=== PATIENT | female | born 1970 | race Asian ===

== ENCOUNTER → 2017-06-25 | Outpatient (CLI) | payer OTHER | END | disposition home or self-care (01) | LOC: KCIC MRI 13:45 | DX: S43.432A Superior glenoid labrum lesion of left shoulder, initial encounter (principal); M19.012 Primary osteoarthritis, left shoulder; X58.XXXA Exposure to other specified factors, initial encounter; Y93.89 Activity, other specified; Y92.89 Other specified places as the place of occurrence of the external cause; Y99.8 Other external cause status | CPT/HCPCS: 73221 ==

== ENCOUNTER → 2020-05-19 | Outpatient (CLI) | payer OTHER ==
[2020-04-25 14:53] VITALS: BP 103/70
[~2020-05-19] MED LIST: 0.9 % SODIUM CHLORIDE 10 ML DISP.SYRIN. ID ONE; CEFD300C PO; CONTRAST GIVEN. MC PRN; DEXA4TAB PO; FAMO-63 PO; GADOTERATE 5 MMOL/10ML VIAL. INT ART ONE; IOHEXOL 300 MG/ML 50 ML VIAL. INT ART ONE; LIDOCAINE 1% Multi-Dose 20 ML VIAL. ID ONE
--- NOTE | 2020-05-19 16:04 | KCIC ---
EXAM: Fluoroscopically guided left glenohumeral joint injection for MRI arthrogram INDICATION: Superior glenoid labral lesion, osteoarthritis, adhesive capsulitis COMPARISON: Left shoulder radiograph 07/01/2018 TECHNIQUE/FINDINGS: The purpose of the procedure and risks including infection, bleeding, contrast reaction, and pain wer e discussed with the patient. Informed consent was obtained. A timeout was performed. After obtaining consent, the patient was placed supine on the fluoroscopy table with the shoulder ext ernally rotated. The skin overlying the left glenohumeral joint was marked, sterilized and draped. Superficial and deep soft tissues were anesthetized with 1% lidocaine. Utilizing fluoroscopic C-Vibes ce, a 22-gauge 1.5 inch needle was advanced into the joint. Intraarticular position was confirmed wit h injection of a small amount of iodinated contrast. Subsequently, 13 mL of a solution containing th e following items was instilled into the joint: 10 mL of 1% lidocaine, 5 mL of sterile saline, 5 mL of non-ionic iodinated contrast, and 0.1 mL of gadolinium. At the end of the procedure, the needle was removed. The overlying skin was cleansed and covered wit h a bandaid. The patient tolerated the procedure well and was free of immediate complications. The p atient was transferred for the MR portion of the exam in stable condition. Total fluoroscopic time: 27 seconds. IMPRESSION: Technically successful left glenohumeral joint injection for the purposes of MR arthrogr am. Electronically signed by: Luisa Shaver MD (05/19/2020 4:02 PM) [id number]
--- NOTE | 2020-05-21 15:11 | KCIC ---
EXAM: MRI LEFT SHOULDER WITHCONTRAST INDICATION: Superior glenoid labral lesion. Chronic pain for 3 years COMPARISON: Left shoulder radiograph 07/01/2018 and MRI left shoulder 06/25/2017 TECHNIQUE: Multiplanar, multisequence imaging of the left shoulder after intra-articular injection of contrast, performed separately. FINDINGS: The exam is limited by motion artifact. ROTATOR CUFF: Rotator cuff is intact without evidence of high-grade or thickness tear. No rotator cuf f muscle atrophy or edema. LABRUM: There is degenerative tearing of the labrum. BICEPS TENDON: Biceps tendinopathy as it exits the joint.. ACROMIOCLAVICULAR JOINT: Mild acromioclavicular degenerative joint disease. Type I acromion with late ral downsloping. GLENOHUMERAL JOINT: There is worsened, now diffuse full-thickness cartilage loss throughout the joint with large osteophytes and remodeling of the glenoid articular surface. There is subchondral marrow edema and cystic humeral head and glenoid.. OTHER: There is synovitis. Small amount of fluid in the subacromial-subdeltoid bursa. IMPRESSION: 1. Worsened, severe glenohumeral osteoarthrosis with full-thickness cartilage loss. 2. No full-thickness rotator cuff tear. 3. Diffuse degenerative labral tearing. Biceps tendinopathy. 4. Synovitis. Electronically signed by: Luisa Shaver MD (05/21/2020 3:08 PM) [id number]
== END | disposition home or self-care (01) ==
LOC: KCIC 13:58
PROVIDERS: ATTEND Physician Assistant
DX: M19.012 Primary osteoarthritis, left shoulder (principal); M75.02 Adhesive capsulitis of left shoulder; S43.432A Superior glenoid labrum lesion of left shoulder, initial encounter; M25.712 Osteophyte, left shoulder; M65.812 Other synovitis and tenosynovitis, left shoulder; E66.3 Overweight; Z68.43 Body mass index [BMI] 50.0-59.9, adult; Z79.899 Other long term (current) drug therapy; Z82.49 Family history of ischemic heart disease and other diseases of the circulatory system; X58.XXXA Exposure to other specified factors, initial encounter; Y93.89 Activity, other specified; Y92.89 Other specified places as the place of occurrence of the external cause; Y99.8 Other external cause status
CPT/HCPCS: 23350; 73222; 77002; A9575; J3490; Q9967; 73040

== ENCOUNTER → 2020-10-16 | Outpatient (CLI) | payer OTHER ==
[2020-04-25 14:53] VITALS: BP 103/70
[~2020-10-16] MED LIST changes: -0.9 % SODIUM CHLORIDE 10 ML DISP.SYRIN. ID ONE; -CONTRAST GIVEN. MC PRN; -GADOTERATE 5 MMOL/10ML VIAL. INT ART ONE; +IBUP-1007 PO; -IOHEXOL 300 MG/ML 50 ML VIAL. INT ART ONE; -LIDOCAINE 1% Multi-Dose 20 ML VIAL. ID ONE; +MELA5TAB20 PO; +MULT-766 PO; +NORE-83 PO; +ONDA4TAB12 PO; +TRAM50TA PO; +WHEA1POW8 PO
[2020-10-16 12:37] LABS: BASO % 1 % (0-3); EOS # 0.1 x10^3/uL (0.0-0.7); EOS % 1 % (0-3); HEMATOCRIT 39.7 % (36.0-47.0); HEMOGLOBIN 13.5 g/dL (12.0-15.5); LYMPH # 1.3 x10^3/uL (1.0-4.8); LYMPH % 31 % (24-48); MEAN CORPUSCULAR HEMOGLOBIN 30 pg (25-35); MEAN CORPUSCULAR HGB CONC 34 g/dL (31-37); MEAN CORPUSCULAR VOLUME 88 fL (79-100); MONO # 0.4 x10^3/uL (0.0-1.1); MONO % 8 % (0-9); NEUT # 2.5 x10^3/uL (1.8-7.7); NEUT % 58 % (31-73); PLATELET COUNT 270 x10^3/uL (140-400); RED CELL DISTRIBUTION WIDTH 13.2 % (11.5-14.5); WHITE BLOOD COUNT 4.2 x10^3/uL (4.0-11.0)
[2020-10-16 12:44] LABS: ALBUMIN 3.6 g/dL (3.4-5.0); CALCIUM 8.1 mg/dL (8.5-10.1); CREATININE 0.6 mg/dL (0.6-1.0); POTASSIUM 3.6 mmol/L (3.5-5.1)
[2020-10-16 12:47] LABS: PROTHROMBIN TIME PATIENT 12.9 SEC (11.7-14.0)
--- NOTE | 2020-10-16 12:56 | EKG ---
[facility] [address] [place] [address] Test Date: 2020-10-16 Test Time: 12:52:51 Pat Name: MARIELA PIÑA Department: Room: Gender: F [employer] Operations Specialist: : [id number] Requested By: ROD JAMES Order Number: [id number] Reading MD: Brandyn Kim MD Measurements Intervals [place] Rate: 82 P: 41 MN: 136 QRS: 13 QRSD: 70 T: 8 QT: 378 QTc: 445 Interpretive Statements SINUS RHYTHM Electronically Signed On 10-16-2020 15:49:11 CDT by Brandyn Kim MD
--- NOTE | 2020-10-16 13:20 | RAD ---
EXAM: Chest, 2 views. HISTORY: Preoperative evaluation. COMPARISON: None. FINDINGS: 2 views of the chest are obtained. There is no infiltrate, pleural fusion or pneumothorax. The heart is normal in size. There is focal right infrahilar opacity due to overlying osseous and pul monary vascular shadows. IMPRESSION: No acute pulmonary finding. Electronically signed by: Marisela Clements MD (10/16/2020 1:17 PM) [id number]
[2020-10-17 03:10] LABS: HEMOGLOBIN A1C 5.3 % (4.8-5.6)
== END ==
LOC: SURGPAT 12:05
PROVIDERS: ATTEND Orthopaedic Surgery
DX: Z01.818 Encounter for other preprocedural examination (principal); M19.012 Primary osteoarthritis, left shoulder; Z96.612 Presence of left artificial shoulder joint
CPT/HCPCS: 36415; 71046; 80048; 82040; 82306; 83036; 85025; 85610; 85651; 85730; 87641; 93005